=== PATIENT | male | born 1945 | race American Indian/Alaskan Native ===

== ENCOUNTER 2017-08-28 11:37 | Day surgery (SDC) | payer MEDICARE ==
[2017-08-27 14:40] VITALS: BMI 28.4
[2017-08-28 12:18] LABS: BASO # 0.05 K/mm3 (0.0-2.0); BASO % 0.9 % (0.0-3.0); EOS # 0.2 (0.0-0.7); EOS % 3.8 % (1.5-5.0); GRAN # 2.48 (1.4-6.5); GRAN % 45.1 % (50.0-68.0); HEMOGLOBIN 13.6 g/dL (14.0-18.0); LYMPH # 2.4 (1.2-3.4); MEAN CELL VOLUME 80.5 fl (80.0-105.0); MEAN CORPUSCULAR HEMOGLOBIN 26.8 pg (25.0-35.0); MEAN CORPUSCULAR HGB CONC 33.3 g/dl (31.0-37.0); MEAN PLATELET VOLUME 9.9 fl (7.0-11.0); MONO # 0.3 (0.1-0.6); MONO % 6.2 % (1.0-6.0); RBC 5.08 10^6/uL (3.5-6.1); RED CELL DISTRIBUTION WIDTH 13.3 % (11.5-14.5); WHITE BLOOD COUNT 5.5 10^3/ul (4.5-11.0)
[2017-08-28 12:27] LABS: BLOOD UREA NITROGEN 18 mg/dL (7-21); CALCIUM 9.1 mg/dL (8.4-10.5); GFR AFRICAN-AMERICAN > 60; GFR NON-AFRICAN AMERICAN > 60
[2017-08-28 12:29] LABS: INR 1.06 (0.93-1.08); PARTIAL THROMBOPLASTIN TIME 36.6 Seconds (25.1-36.5); PROTHROMBIN TIME 12.2 SECONDS (9.4-12.5)
[2017-08-28 12:47] VITALS: TEMP 98; O2SAT 98
[2017-08-28] MEDS ORDERED: Lidocaine 1% Inj (20ml) ONE (14:51)
[2017-08-28] MEDS ORDERED: Midazolam 2 MG/2 ML VIAL ONE (14:52)
[2017-08-28] MEDS ORDERED: Oxycodone/Acetaminophen 5/325 mg Tab PO PRN (16:50)
[2017-08-28] MEDS ORDERED: Sodium Chloride 0.45% 1,000 ML IV SCH (17:00)
--- NOTE | 2017-08-28 17:31 | CT ---
PROCEDURE: CT guided left adrenal biopsy. HISTORY: History prostate CA. Bilateral adrenal masses. Evaluate for metastatic disease PHYSICIAN(S): George Duffy MD. TECHNIQUE: The relative risks and indications of the procedure were explained to the patient and consent obtained. The patient was placed prone on the CT scanner and preliminary images through the adrenal glands obtained. Conscious sedation and monitoring were provided throughout the procedure by a nurse. There are bilateral adrenal masses measuring 2-3 cm. A left paraspinal approach was selected and the area prepped and draped in the usual sterile fashion. 1% Xylocaine was used to anesthetize the skin and soft tissues. A 17-gauge guiding needle was advanced into the 2.9 cm left adrenal mass. Its position was confirmed with CT. Using coaxial technique, multiple core biopsies were obtained. The postprocedure images show no evidence of significant hemorrhage. IMPRESSION: 1. CT-guided left adrenal biopsy as described above.
[2017-08-28 18:11] VITALS: BP 133/79; PULSE 70; RESP 18
== END 2017-08-28 18:30 | disposition home or self-care (01) ==
LOC: SDS 11:37
PROVIDERS: ATTEND Radiology Vascular & Interventional Radiology
DX: E27.8 Other specified disorders of adrenal gland (principal); Z85.46 Personal history of malignant neoplasm of prostate; I10 Essential (primary) hypertension
CPT/HCPCS: 36415; 49180; 77012; 80048; 85025; 85610; 85730; 88305; J2250; J2405; J3010; J7030